=== PATIENT | female | born 1940 | race Caucasian/White ===

== ENCOUNTER → 2018-05-04 | Outpatient (CLI) | payer MEDICARE ==
--- NOTE | 2018-05-04 12:37 | XR ---
EXAMINATION TYPE: XR Hip Complete LT DATE OF EXAM: 05/04/2018 CLINICAL HISTORY: Left hip pain. TECHNIQUE: AP and frogleg views of the left hip are obtained. COMPARISON: None. FINDINGS: There is no acute fracture/dislocation evident in the left hip. There is advanced degenera tive change with superior marked joint space loss and aktw-ey-brek formation. Some reactive osteophyt e formation and subchondral cystic change is seen. There is loss of spherical shape in the femoral he ad. Left-sided pelvic phleboliths are seen. IMPRESSION: There is advanced DJD in the left hip.
--- NOTE | 2018-05-04 12:38 | XR ---
EXAMINATION TYPE: XR lumbosacral spine min 4V DATE OF EXAM: 05/04/2018 CLINICAL HISTORY: Left hip pain possible sciatica. TECHNIQUE: Frontal, lateral, and oblique images of the lumbar spine are obtained. COMPARISON: None FINDINGS: Demineralization is present. There are 5 lumbar type vertebral bodies identified. The lumb ar spine shows slight dextroconvex scoliotic curvature without evidence of acute fracture or dislocat ion. Vertebral body heights are within normal limits. Mild disc space narrowing upper lumbar levels i s present. There is multilevel facet arthropathy in the lower lumbar spine. The oblique images appea r within normal limits. Vascular calcification of overlying abdominal aorta is seen. IMPRESSION: As above.
== END | disposition home or self-care (01) ==
LOC: RADXRYALE 11:30
PROVIDERS: ATTEND Internal Medicine
DX: M48.061 Spinal stenosis, lumbar region without neurogenic claudication (principal); M46.96 Unspecified inflammatory spondylopathy, lumbar region; M41.9 Scoliosis, unspecified; M25.552 Pain in left hip
CPT/HCPCS: 72110; 73502

== ENCOUNTER → 2018-07-30 | Outpatient (CLI) | payer MEDICARE | END | disposition home or self-care (01) | LOC: LABPAT 09:03 | PROVIDERS: ATTEND Orthopaedic Surgery | DX: Z01.812 Encounter for preprocedural laboratory examination (principal) | CPT/HCPCS: 87070 ==

== ENCOUNTER → 2018-08-06 | Outpatient (CLI) | payer MEDICARE ==
[2018-08-06 16:13] LABS: HGB 15.1 gm/dL (11.4-16.0); MCH 28.3 pg (25.0-35.0); MCV 88.5 fL (80.0-100.0); Mean Platelet Volume 7.9; Platelet Count 232 k/uL (150-450); RBC 5.31 m/uL (3.80-5.40); RDW 14.2 % (11.5-15.5); WBC 5.9 k/uL (3.8-10.6)
[2018-08-06 16:21] LABS: Appearance,Urine Clear (Clear); Bacteria,Urine Rare /hpf; Bilirubin,Urine Negative (Negative); Blood,Urine Negative (Negative); Color,Urine Light Yellow; Glucose,Urine (UA) Negative (Negative); Ketones,Urine Negative (Negative); Leukocyte Esterase,Urine Moderate (Negative); Mucus,Urine Rare /hpf; Nitrite,Urine Negative (Negative); Protein,Urine Negative (Negative); RBC,Urine 1 /hpf (0-5); Squamous Epithelial Cell,Urine <1 /hpf (0-4); Urobilinogen,Urine <2.0 mg/dL (<2.0); WBC,Urine 7 /hpf (0-5)
[2018-08-06 16:24] LABS: Anion Gap 10 mmol/L; Blood Urea Nitrogen 17 mg/dL (7-17); Carbon Dioxide 25 mmol/L (22-30); Chloride 106 mmol/L (98-107); Potassium 4.4 mmol/L (3.5-5.1); Sodium 141 mmol/L (137-145)
[2018-08-06 16:27] LABS: Prothrombin Time 9.8 sec (9.0-12.0)
== END | disposition home or self-care (01) ==
LOC: LABPAT 14:57
PROVIDERS: ATTEND Orthopaedic Surgery
DX: Z01.812 Encounter for preprocedural laboratory examination (principal)
CPT/HCPCS: 80051; 81001; 82565; 84520; 85027; 85610; 85730

== ENCOUNTER 2018-08-10 05:33 | Inpatient (IN) | payer MEDICARE ==
[2018-08-03 11:38] VITALS: BMI 25.4
[~2018-08-10 05:33] MED LIST: ACETAMINOPHEN TAB 500 MG TAB PO ONE; MELOXICAM 7.5 MG TAB PO ONE; TRANEXAMIC ACID 1,000 MG in SODIUM CHLORIDE 0.9% 50 ML IVPB ONE; ceFAZolin IN SWFI 2 GM/20 ML SYRINGE IVP ONE
[2018-08-10] MEDS ORDERED: DEXAMETHASONE SOD PHOSPHATE 10 MG/ML 1 ML VIAL IV ONE (05:40)
[2018-08-10] MEDS ORDERED: ONDANSETRON 4 MG/2 ML VIAL IVP ONE (05:40)
[2018-08-10] MEDS ORDERED: HYDROmorphone 0.5 MG/0.5 ML SYRINGE IVP PRN (05:40)
[2018-08-10] MEDS ORDERED: ROPIVACAINE 246.25 MG, EPINEPHrine 0.5 MG, KETOROLAC 30 MG, cloNIDine HCL/PF 80 MCG, WA... MISCELLANE ONE ×5 (05:54)
[2018-08-10] MEDS: LACTATED RINGERS 1,000 ML IV SCH (06:45)
[2018-08-10] MEDS ORDERED: LIDOCAINE 1% 20 ML VIAL (10MG/ML) FOR IV START INTRADERMA ONE (06:45)
[2018-08-10] MEDS ORDERED: MIDAZOLAM 2 MG/2 ML VIAL ONE (07:23)
[2018-08-10] MEDS ORDERED: NALOXONE 0.4 MG/ML 1 ML VIAL IV PRN (07:23)
[2018-08-10] MEDS ORDERED: HEPARIN SODIUM,PORCINE 10,000 UNIT/ML 1 ML VIAL ONE (07:23)
[2018-08-10] MEDS ORDERED: SODIUM CHLORIDE 0.9% IRRIG 1,000 ML BTL IRRIGATION ONE (07:23)
[2018-08-10] MEDS ORDERED: ONDANSETRON 4 MG/2 ML VIAL IVP PRN (07:23)
[2018-08-10] MEDS ORDERED: MAGNESIUM HYDROXIDE 2,400 MG/10 ML CUP PO PRN (07:23)
[2018-08-10] MEDS ORDERED: SODIUM CHLORIDE 0.9% 100 ML BAG ONE (07:23)
[2018-08-10] MEDS ORDERED: fentaNYL (PF) 50 MCG/ML 2 ML AMP ONE (07:23)
[2018-08-10] MEDS ORDERED: TRANEXAMIC ACID 1,000 MG/10 ML VIAL ONE (07:23)
[2018-08-10] MEDS ORDERED: HYDROcodone/APAP 5-325MG 1 EACH TAB PO PRN (07:23)
[2018-08-10] MEDS ORDERED: HYDROmorphone 1 MG/ML 1 ML SYRINGE IVP PRN ×3 (07:23)
[2018-08-10] MEDS ORDERED: DIAZEPAM 5 MG TAB PO PRN ×2 (07:23)
[2018-08-10] MEDS ORDERED: ceFAZolin 3,000 MG in SODIUM CHLORIDE 0.9% IRRIGATIO 3,000 ML IRRIGATION ONE (08:08)
--- NOTE | 2018-08-10 08:58 | P.OP ---
Date of Procedure: 08/10/18 Preoperative Diagnosis: Severe osteoarthritis left hip Postoperative Diagnosis: Severe osteoarthritis left hip Procedure(s) Performed: Left total hip arthroplasty with a direct anterior approach Implants: Johnson and nephew Polarstem size 3 standard Johnson & Nephew R3, 3 hole acetabular shell, 48 mm Johnson & Nephew reflection 6.5 mm cancellus screw, 20 mm 2 Johnson & Nephew R3, XLPE 20 acetabular liner Johnson & Nephew Oxinium femoral head 32 m, +0 All components were press-fit. The articulation is Oxinium on polyethylene. Anesthesia: spinal Surgeon: Alek Tong Metal Numerical Control Programmer #1: Munira Crespo Estimated Blood Loss (ml): 150 (65 mL returned with Cell Saver) Pathology: other (Femoral head) Condition: stable Disposition: PACU Indications for Procedure: After failure of conservative treatment we discussed the surgical and nonsurgical treatment options at length. Patient wishes to proceed with a total hip arthroplasty with a direct anterior approach. Complications specific to this procedure were discussed at length, including but not limited to infection, leg length discrepancy, dislocation, and nerve injury. Patient is aware of all these complications and informed consent was obtained Operative Findings: The operative findings are consistent with severe osteoarthritis of the left hip Description of Procedure: Patient was seen and evaluated in the preoperative area, consent was reviewed, and the surgical site was marked with a skin marker. Patient was then brought to the operating room and given prophylactic antibiotics intravenously. 1 g of Tranexamic acid was also given. A spinal anesthetic was administered by the anesthesia department. The patient was then placed on the [place] table with the bony prominences well-padded. The hip area was then prepped and draped in usual sterile fashion. A universal timeout was then performed, which confirmed the patient's name, surgical site, ALLERGIES, and procedure being performed. Next the incision site was located at 1 cm distal and 1 cm lateral to the anterior superior iliac spine. The skin and subcutaneous tissues were sharply incised. Incision was carefully dissected down to the fascia overlying the tensor fascia juan muscle. This fascia was then incised in line with the incision. Next, using blunt finger dissection, the tensor fascia juan muscle was dissected off its investing fascia. The muscle was then carefully retracted laterally with a cobra retractor over the lateral neck of the femur. Next, the circumflex vessels were identified and cauterized using the AquaMantis device. The anterior hip capsule was then exposed. The capsule was then opened and an inverted T fashion. Cobra retractors were then placed intracapsularly. The proximal femur was then visualized. The femoral neck was then osteotomized appropriate level above the lesser trochanter. Small amount of traction was placed with the [place] table. A small wedge of bone was then removed from the remaining femoral head. Next, using a corkscrew femoral head was easily removed from the acetabulum. On gross visual inspection, the femoral head had complete loss of articular cartilage in multiple periarticular osteophytes. Attention was then turned to the acetabulum. the acetabulum was exposed and any remaining labrum was excised. Sequential reaming of the acetabulum was performed using fluoroscopic guidance. When the appropriate size was reached, a trial was then placed. The position and fit of the trial was checked with fluoroscopy. The trial was then removed. Then, using fluoroscopic guidance, the final implant was impacted at 20 of anteversion and 40 of abduction, and fully seated in the acetabulum. 2 screws were then placed in the acetabulum. Again fluoroscopy was used to check position of the screws. Next, the liner was then impacted, with a 20 elevated liner located in the anterior superior quadrant. Component locking was confirmed. Attention was then directed to the femur. With the aid of the [place] table, the femur was externally rotated to approximately 130, extended, and abducted under the opposite leg. A side hook was then placed under the proximal femur, and the side hook elevator was used to elevate the proximal femur. Retractors were then placed. A capsular release was performed, as well as a release of the conjoined tendon, which afforded excellent visualization of the proximal femur. Next, a box osteotome was used to lateralize the proximal femur. A hand stapler was then used to locate the femoral canal. Sequential broaching was then performed with appropriate size which afforded excellent fixation in the proximal femur. A trial was then placed with appropriate head and neck, and the hip was gently reduced with the aid of the [place] table. Fluoroscopy was then used to check position of the components, as well as to ensure equal leg lengths. The hip was then gently dislocated and the trials were then removed. Final implants were then impacted and the hip was again reduced. Final fluoroscopic x-rays confirmed that the components were in anatomic position, as well as equal leg lengths. The hip was also taken through range of motion, and found to be stable. The hip was then copiously irrigated with antibiotic solution with pulsatile lavage. The hip was then irrigated with Irrisept solution. The soft tissues were then injected with a ropivacaine solution, which consisted of 246.25 mg of ropivacaine, 0.5 mg of epinephrine, 30 mg of Toradol, 80 g of clonidine, and 48.45 mL of sterile water, for a total of 100 mL of fluid injected. A second dose of 1 g of Tranexamic acid was also given. the fascia was then closed with 2-0 strata fix suture. The subcutaneous tissue was closed with 3-0 Vicryl. The subcuticular tissue was closed with 3-0 strata fix suture. The skin was then closed with Dermabond glue and a sterile silver dressing. The patient was then transferred to the recovery room in stable condition. The educational assistant teacher NEO Son was required due to the complexity of surgery, and the need for skilled surgical lead for positioning, draping, exposure, retraction, and closure of the wound.
--- NOTE | 2018-08-10 09:31 | XR ---
Fluoroscopy History: Status post hip surgery, assess surgical alignment 38 sec fluoro
[2018-08-10] MEDS: SODIUM CHLORIDE 0.9% 1,000 ML IV SCH ×2 (11:09→20:09)
--- NOTE | 2018-08-10 13:17 | P.CONS ---
History of Present Illness - Reason for Consult Preoperative Complication management - History of Present Illness 78-year-old pleasant female underwent elective left hip arthroplasty successfully underwent surgery doesn't have a surgical drain denied any fever chills nausea vomiting patient pain is well controlled at this time patient denied any dysuria. Patient doesn't have a Sheriff catheter at this time. Patient denied any cough runny nose. Review of Systems REVIEW OF SYSTEMS: CONSTITUTIONAL: No fever, no malaise, no fatigue. HEENT: No recent visual problems or hearing problems. Denied any sore throat. CARDIOVASCULAR: No chest pain, orthopnea, PND, no palpitations, no syncope. PULMONARY: No shortness of breath, no cough, no hemoptysis. GASTROINTESTINAL: No diarrhea, no nausea, no vomiting, no abdominal pain. Normoactive bowel sounds. NEUROLOGICAL: No headaches, no weakness, no numbness. HEMATOLOGICAL: Denies any bleeding or petechiae. GENITOURINARY: Denies any burning micturition, frequency, or urgency. MUSCULOSKELETAL/RHEUMATOLOGICAL: Denies any joint pain, swelling, or any muscle pain. ENDOCRINE: Denies any polyuria or polydipsia. The rest of the 14-point review of systems is negative. Past Medical History Past Medical History: Cancer, Thyroid Disorder Additional Past Medical History / Comment(s): varicose veins, "weak bladder", hx uterine cancer, History of Any Multi-Drug Resistant Organisms: None Reported Past Surgical History: Breast Surgery, Hysterectomy, Joint Replacement Additional Past Surgical History / Comment(s): rt hip replacement, cyst removed from rt breast, Past Anesthesia/Blood Transfusion Reactions: No Reported Reaction Past Psychological History: No Psychological Hx Reported Smoking Status: Never smoker Past Alcohol Use History: None Reported Past Drug Use History: None Reported - Past Family History Father Family Medical History: Cancer Daughter(s) Family Medical History: Cancer Medications and Allergies Home Medications Medication Instructions Recorded Confirmed Type Acetaminophen [Tylenol Extra 500 mg PO DIRECTED PRN 08/03/18 08/10/18 History Strength] Calcium Carbonate/Vitamin D3 1 cap PO GARCIA 08/03/18 08/10/18 History [Calcium 600-Vit D3 500 Softgel] Cetirizine HCl [Zyrtec] 10 mg PO DAILY 08/03/18 08/10/18 History Levothyroxine Sodium [Synthroid] 50 mcg PO DAILY 08/03/18 08/10/18 History Montelukast Sodium [Singulair] 10 mg PO HS 08/03/18 08/10/18 History Naproxen 500 mg PO BID PRN 08/03/18 08/10/18 History Oxybutynin Chloride 5 mg PO BID 08/03/18 08/10/18 History Pravastatin Sodium [Pravachol] 40 mg PO DAILY@1600 08/03/18 08/10/18 History Allergies Allergy/AdvReac Type Severity Reaction Status Date / Time No Known Allergies Allergy Verified 08/10/18 09:44 Physical Exam Vitals: Vital Signs Temp Pulse Resp BP Pulse Ox 08/10/18 12:30 79 140/86 08/10/18 12:15 73 122/70 08/10/18 12:00 73 122/70 08/10/18 11:45 69 120/76 08/10/18 11:30 78 118/75 08/10/18 11:15 68 128/77 08/10/18 11:00 78 120/77 08/10/18 10:45 80 135/111 08/10/18 10:32 64 14 08/10/18 10:25 64 14 115/76 100 08/10/18 09:51 66 16 101/56 98 08/10/18 09:39 60 16 96/55 98 08/10/18 09:21 67 16 101/57 97 08/10/18 09:05 98.3 F 76 16 114/55 94 L 08/10/18 06:45 97.6 F 69 16 134/80 98 Intake and Output 08/09/18 08/10/18 08/10/18 22:59 06:59 14:59 Intake Total 100 601 Output Total 150 Balance 100 451 Intake: IV 100 601 Output: Estimated Blood Loss 150 Other: Weight 61.235 kg PHYSICAL EXAMINATION: GENERAL: The patient is alert and oriented x3, not in any acute distress. Well developed, well nourished. HEENT: Pupils are round and equally reacting to light. EOMI. No scleral icterus. No conjunctival pallor. Normocephalic, atraumatic. No pharyngeal erythema. No thyromegaly. CARDIOVASCULAR: S1 and S2 present. No murmurs, rubs, or gallops. PULMONARY: Chest is clear to auscultation, no wheezing or crackles. ABDOMEN: Soft, nontender, nondistended, normoactive bowel sounds. No palpable organomegaly. MUSCULOSKELETAL: Deferred to orthopedic surgery EXTREMITIES: No cyanosis, clubbing, or pedal edema. NEUROLOGICAL: Gross neurological examination did not reveal any focal deficits. SKIN: No rashes. Assessment and Plan Plan: -Left hip arthroplasty postoperative day 0: Pain management DVT prophylaxis per primary service -Hypothyroidism: Continue with levothyroxine -Hyperlipidemia continue with statin -Primary degenerative osteoarthritis multiple joints.
[2018-08-10] MEDS: PRAVASTATIN SODIUM 40 MG TAB PO SCH (15:34)
[2018-08-10] MEDS: ceFAZolin IN SWFI 2 GM/20 ML SYRINGE IVP SCH (15:34)
[2018-08-10] MEDS: HYDROcodone/APAP 5-325MG 1 EACH TAB PO PRN ×2 (15:34→21:08)
[2018-08-10] MEDS: ASPIRIN 325 MG TAB PO SCH (20:08)
[2018-08-10] MEDS: MONTELUKAST 10 MG TAB PO SCH (20:08)
[2018-08-10] MEDS: SENNOSIDES-DOCUSATE SODIUM 1 EACH TAB PO SCH (20:09)
[2018-08-10] MEDS: OXYBUTYNIN CHLORIDE 5 MG TAB PO SCH (20:09)
[2018-08-10] MEDS: hydrOXYzine PAMOATE 25 MG CAP PO PRN (21:09)
[2018-08-11] MEDS: ceFAZolin IN SWFI 2 GM/20 ML SYRINGE IVP SCH (00:32)
[2018-08-11] MEDS: LACTATED RINGERS 1,000 ML IV SCH (05:24)
[2018-08-11] MEDS: LEVOTHYROXINE 50 MCG TAB PO SCH (05:26)
[2018-08-11 07:53] LABS: Basophils % (A) 0 %; Eosinophils % (A) 0 %; HCT 36.9 % (34.0-46.0); Lymphocytes % (A) 12 %; MCH 28.4 pg (25.0-35.0); MCHC 31.9 g/dL (31.0-37.0); MCV 89.1 fL (80.0-100.0); Mean Platelet Volume 7.8; Monocytes # (A) 0.6 k/uL (0-1.0); Monocytes % (A) 8 %; Neutrophils # (A) 6.2 k/uL (1.3-7.7); Neutrophils % (A) 78 %; Platelet Count 192 k/uL (150-450); RBC 4.14 m/uL (3.80-5.40); RDW 14.1 % (11.5-15.5); WBC 7.9 k/uL (3.8-10.6)
[2018-08-11 07:58] LABS: HGB 11.8 gm/dL (11.4-16.0)
[2018-08-11] MEDS: OXYBUTYNIN CHLORIDE 5 MG TAB PO SCH ×2 (08:44→21:10)
[2018-08-11] MEDS: LORATADINE 10 MG TAB PO SCH (08:44)
[2018-08-11] MEDS: MELOXICAM 7.5 MG TAB PO SCH (08:44)
[2018-08-11] MEDS: ASPIRIN 325 MG TAB PO SCH ×2 (08:44→21:10)
[2018-08-11] MEDS: HYDROcodone/APAP 5-325MG 1 EACH TAB PO PRN ×3 (08:45→21:11)
--- NOTE | 2018-08-11 12:59 | P.PN ---
Subjective Progress Note Date: 08/11/18 This is a 78-year-old female who is status post left total hip arthroplasty. This is postoperative day #1. Patient states that her pain is under control and she has been up and walking with physical therapy. Patient denies any fever/ chills, numbness, weakness, tingling, abdominal pain, shortness of breath or chest pain. Objective - Vital Signs Vital signs: Vital Signs Temp 97.2 F L 08/11/18 07:00 Pulse 85 08/11/18 07:00 Resp 12 08/11/18 07:00 BP 179/79 08/11/18 07:00 Pulse Ox 94 L 08/11/18 07:00 Intake & Output 08/10/18 08/11/18 08/11/18 18:59 06:59 18:59 Intake Total 601 1630 Output Total 650 Balance -49 1630 Weight 61.235 kg Intake: IV 601 Intake, IV Titration 550 Amount Sodium Chloride 0.9% 1, 550 000 ml @ 65 mls/hr IV . [id number] [facility] Rx#:[id number] Oral 1080 Output: Stool 500 Estimated Blood Loss 150 Other: Voiding Method Toilet # Voids 3 2 # Bowel Movements 0 - Exam Vital signs are stable. Patient is in no acute distress and is alert and oriented 3. Calf is soft and nontender to palpation. Dressing is clean, dry, and intact. Patient has full foot and ankle motion without pain or difficulty. Neurovascular status and circulatory status are intact. - Labs CBC & Chem 7: 08/11/18 06:40 Assessment and Plan (1) Primary osteoarthritis of left hip Current Visit: Yes Status: Acute Code(s): M16.12 - UNILATERAL PRIMARY OSTEOARTHRITIS, LEFT HIP SNOMED Code(s): 282786347 (2) Status post total hip replacement, left Current Visit: Yes Status: Acute Code(s): Z96.642 - PRESENCE OF LEFT ARTIFICIAL HIP JOINT SNOMED Code(s): 206901959111 Plan: Continue routine postop care. Continue antocoagulation. Weightbearing as tolerated with a walker. Leave dressing in place for 10 days. Possible discharge to rehab on .
--- NOTE | 2018-08-11 13:26 | P.PN ---
Subjective No overnight events moved her bowel. Objective - Vital Signs Vital signs: Vital Signs Temp 97.2 F L 08/11/18 07:00 Pulse 85 08/11/18 07:00 Resp 12 08/11/18 07:00 BP 179/79 08/11/18 07:00 Pulse Ox 94 L 08/11/18 07:00 Intake & Output 08/10/18 08/11/18 08/11/18 18:59 06:59 18:59 Intake Total 601 1630 Output Total 650 Balance -49 1630 Weight 61.235 kg Intake: IV 601 Intake, IV Titration 550 Amount Sodium Chloride 0.9% 1, 550 000 ml @ 65 mls/hr IV . [id number] Rx#:[id number] Oral 1080 Output: Stool 500 Estimated Blood Loss 150 Other: Voiding Method Toilet # Voids 3 2 # Bowel Movements 0 - Exam PHYSICAL EXAMINATION: GENERAL: The patient is alert and oriented x3, not in any acute distress. Well developed, well nourished. HEENT: Pupils are round and equally reacting to light. EOMI. No scleral icterus. No conjunctival pallor. Normocephalic, atraumatic. No pharyngeal erythema. No thyromegaly. CARDIOVASCULAR: S1 and S2 present. No murmurs, rubs, or gallops. PULMONARY: Chest is clear to auscultation, no wheezing or crackles. ABDOMEN: Soft, nontender, nondistended, normoactive bowel sounds. No palpable organomegaly. MUSCULOSKELETAL: Deferred to orthopedic surgery EXTREMITIES: No cyanosis, clubbing, or pedal edema. NEUROLOGICAL: Gross neurological examination did not reveal any focal deficits. SKIN: No rashes. - Labs CBC & Chem 7: 08/11/18 06:40 Assessment and Plan Plan: -Left hip arthroplasty postoperative day 1: Pain management DVT prophylaxis per primary service -Hypothyroidism: Continue with levothyroxine -Hyperlipidemia continue with statin -Primary degenerative osteoarthritis multiple joints.
[2018-08-11] MEDS: PRAVASTATIN SODIUM 40 MG TAB PO SCH (18:04)
[2018-08-11] MEDS: SENNOSIDES-DOCUSATE SODIUM 1 EACH TAB PO SCH (21:10)
[2018-08-11] MEDS: MONTELUKAST 10 MG TAB PO SCH (21:10)
[2018-08-11] MEDS: hydrOXYzine PAMOATE 25 MG CAP PO PRN (21:10)
[2018-08-12] MEDS: LACTATED RINGERS 1,000 ML IV SCH (03:23)
[2018-08-12] MEDS: HYDROcodone/APAP 5-325MG 1 EACH TAB PO PRN ×3 (04:29→20:24)
[2018-08-12] MEDS: hydrOXYzine PAMOATE 25 MG CAP PO PRN (04:30)
[2018-08-12] MEDS: LEVOTHYROXINE 50 MCG TAB PO SCH (06:06)
--- NOTE | 2018-08-12 08:14 | P.PN ---
Subjective Progress Note Date: 08/12/18 This is a 78-year-old female who is status post left total hip arthroplasty. This is postoperative day #2. Patient states that she has been up and walking and her pain is under control. Patient denies any fever/chills, numbness, weakness, tingling, abdominal pain, shortness of breath or chest pain. Objective - Vital Signs Vital signs: Vital Signs Temp 97.8 F 08/12/18 07:15 Pulse 80 08/12/18 07:15 Resp 16 08/12/18 07:15 BP 119/75 08/12/18 07:15 Pulse Ox 98 08/12/18 07:15 Intake & Output 08/11/18 08/12/18 08/12/18 18:59 06:59 18:59 Other: # Voids 3 1 - Exam Vital signs are stable. Patient is in no acute distress and is alert and oriented 3. Calf is soft and nontender to palpation. Dressing is clean, dry, and intact. Patient has full foot and ankle motion without pain or difficulty. Neurovascular status and circulatory status are intact. - Labs CBC & Chem 7: 08/11/18 06:40 Assessment and Plan (1) Primary osteoarthritis of left hip Current Visit: Yes Status: Acute Code(s): M16.12 - UNILATERAL PRIMARY OSTEOARTHRITIS, LEFT HIP SNOMED Code(s): 391703218 (2) Status post total hip replacement, left Current Visit: Yes Status: Acute Code(s): Z96.642 - PRESENCE OF LEFT ARTIFICIAL HIP JOINT SNOMED Code(s): 623509520780 Plan: Continue routine postop care. Continue antocoagulation. Weightbearing as tolerated with a walker. Leave dressing in place for 10 days. Likely discharge to rehab tomorrow.
[2018-08-12] MEDS: LORATADINE 10 MG TAB PO SCH (08:55)
[2018-08-12] MEDS: MELOXICAM 7.5 MG TAB PO SCH (08:55)
[2018-08-12] MEDS: OXYBUTYNIN CHLORIDE 5 MG TAB PO SCH ×2 (08:55→20:24)
[2018-08-12] MEDS: ASPIRIN 325 MG TAB PO SCH ×2 (08:55→20:24)
[2018-08-12] MEDS: PRAVASTATIN SODIUM 40 MG TAB PO SCH (18:22)
[2018-08-12] MEDS: MONTELUKAST 10 MG TAB PO SCH (20:24)
[2018-08-12] MEDS: SENNOSIDES-DOCUSATE SODIUM 1 EACH TAB PO SCH (20:24)
[2018-08-13] MEDS: HYDROcodone/APAP 5-325MG 1 EACH TAB PO PRN ×3 (05:12→19:57)
[2018-08-13] MEDS: LEVOTHYROXINE 50 MCG TAB PO SCH (05:12)
[2018-08-13 07:09] LABS: Basophils % (A) 1 %; Eosinophils # (A) 0.1 k/uL (0-0.7); Eosinophils % (A) 2 %; HCT 34.5 % (34.0-46.0); HGB 11.2 gm/dL (11.4-16.0); Lymphocytes # (A) 0.8 k/uL (1.0-4.8); Lymphocytes % (A) 13 %; MCH 29.1 pg (25.0-35.0); MCHC 32.5 g/dL (31.0-37.0); MCV 89.6 fL (80.0-100.0); Mean Platelet Volume 7.7; Monocytes # (A) 0.4 k/uL (0-1.0); Monocytes % (A) 7 %; Neutrophils # (A) 4.6 k/uL (1.3-7.7); Neutrophils % (A) 76 %; Platelet Count 185 k/uL (150-450); RBC 3.85 m/uL (3.80-5.40); RDW 14.2 % (11.5-15.5)
--- NOTE | 2018-08-13 07:59 | P.DS ---
Providers Date of admission: 08/10/18 05:33 Expected date of discharge: 08/13/18 Attending physician: Alek Tong Consults: 08/10/18 07:23 Consult Physician Routine Consulting Provider: Renny Concepcion Consult Reason/Comments: medical management Do you want consulting provider notified?: Yes Primary care physician: Maia Chapman - Discharge Diagnosis(es) (1) Primary osteoarthritis of left hip Current Visit: Yes Status: Acute (2) Status post total hip replacement, left Current Visit: Yes Status: Acute Hospital Course: This is a 78-year-old female with known history of degenerative arthritis of the left hip. The patient presents for evaluation. After discussion and consideration patient elects to proceed with total hip arthroplasty. The patient is seen preoperatively by Dr. Tong and medically cleared for surgery by their primary care physician. Patient is admitted to [facility] on 08/10/2018 for total hip arthroplasty. The procedures performed without complication or sequelae. The patient is doing well postoperatively. Labs and vital signs are stable on day of discharge. On day of discharge patient's hip incision is healing well. There is minimal erythema. There is no drainage noted at this time. There is minimal soft tissue swelling to the hip and thigh. Patient has full foot and ankle motion without difficulty or pain. Neurovascular status to the left lower extremity is intact. Patient is discharged to rehab in good condition. Please see med rec for accurate list of home medications. Plan - Discharge Summary Discharge Rx Participant: Yes New Discharge Prescriptions: New Aspirin 325 mg PO BID #60 tab HYDROcodone/APAP 5-325MG [[place] 5-325] 1 - 2 tab PO Q4-6H PRN #84 tab PRN Reason: Pain Sennosides [Senokot] 1 tab PO BID #60 tablet No Action Naproxen 500 mg PO BID PRN PRN Reason: Pain Pravastatin Sodium [Pravachol] 40 mg PO DAILY@1600 Oxybutynin Chloride 5 mg PO BID Levothyroxine Sodium [Synthroid] 50 mcg PO DAILY Cetirizine HCl [Zyrtec] 10 mg PO DAILY Montelukast Sodium [Singulair] 10 mg PO HS Acetaminophen [Tylenol Extra Strength] 500 mg PO DIRECTED PRN PRN Reason: Pain Calcium Carbonate/Vitamin D3 [Calcium 600-Vit D3 500 Softgel] 1 cap PO GARCIA Discharge Medication List Acetaminophen [Tylenol Extra Strength] 500 mg PO DIRECTED PRN 08/03/18 [ History] Calcium Carbonate/Vitamin D3 [Calcium 600-Vit D3 500 Softgel] 1 cap PO GARCIA [History] Cetirizine HCl [Zyrtec] 10 mg PO DAILY 08/03/18 [History] Levothyroxine Sodium [Synthroid] 50 mcg PO DAILY 08/03/18 [History] Montelukast Sodium [Singulair] 10 mg PO HS 08/03/18 [History] Naproxen 500 mg PO BID PRN 08/03/18 [History] Oxybutynin Chloride 5 mg PO BID 08/03/18 [History] Pravastatin Sodium [Pravachol] 40 mg PO DAILY@1600 08/03/18 [History] Aspirin 325 mg PO BID #60 tab 08/12/18 [Rx] HYDROcodone/APAP 5-325MG [[place] 5-325] 1 - 2 tab PO Q4-6H PRN #84 tab 08/12/18 [ Rx] Sennosides [Senokot] 1 tab PO BID #60 tablet 08/12/18 [Rx] Follow up Appointment(s)/Referral(s): Alek Tong DO [Doctor of Osteopathic Medicine] - 08/24/18 10:30 am Activity/Diet/Wound Care/Special Instructions: Weightbearing as tolerated with walker Leave dressing intact. Dressing may be removed by home care nurse in 10 days. May shower with dressing on. Follow-up with [facility] in 2 weeks, please call with any questions or concerns [phone] Discharge Disposition: TRANSFER TO SNF/ECF
[2018-08-13] MEDS: LACTATED RINGERS 1,000 ML IV SCH (08:02)
[2018-08-13] MEDS: ASPIRIN 325 MG TAB PO SCH ×2 (08:07→19:56)
[2018-08-13] MEDS: LORATADINE 10 MG TAB PO SCH (08:07)
[2018-08-13] MEDS: MELOXICAM 7.5 MG TAB PO SCH (08:07)
[2018-08-13] MEDS: OXYBUTYNIN CHLORIDE 5 MG TAB PO SCH ×2 (08:07→19:56)
[2018-08-13] MEDS: PRAVASTATIN SODIUM 40 MG TAB PO SCH (16:19)
--- NOTE | 2018-08-13 16:42 | P.PN ---
Subjective No overnight events. Case management is evaluating for her disposition. Objective - Vital Signs Vital signs: Vital Signs Temp 97.4 F L 08/13/18 15:00 Pulse 85 08/13/18 15:00 Resp 16 08/13/18 15:00 BP 142/84 08/13/18 15:00 Pulse Ox 95 08/13/18 15:00 Intake & Output 08/12/18 08/13/18 08/13/18 18:59 06:59 18:59 Intake Total 706 180 Balance 706 180 Intake: Oral 706 180 Other: Voiding Method Toilet # Voids 2 2 1 - Exam PHYSICAL EXAMINATION: GENERAL: The patient is alert and oriented x3, not in any acute distress. Well developed, well nourished. HEENT: Pupils are round and equally reacting to light. EOMI. No scleral icterus. No conjunctival pallor. Normocephalic, atraumatic. No pharyngeal erythema. No thyromegaly. CARDIOVASCULAR: S1 and S2 present. No murmurs, rubs, or gallops. PULMONARY: Chest is clear to auscultation, no wheezing or crackles. ABDOMEN: Soft, nontender, nondistended, normoactive bowel sounds. No palpable organomegaly. MUSCULOSKELETAL: Deferred to orthopedic surgery EXTREMITIES: No cyanosis, clubbing, or pedal edema. NEUROLOGICAL: Gross neurological examination did not reveal any focal deficits. SKIN: No rashes. - Labs CBC & Chem 7: 08/13/18 06:16 Labs: Abnormal Lab Results - Last 24 Hours (Table) 08/13/18 Range/Units 06:16 Hgb 11.2 L (11.4-16.0) gm/dL Lymphocytes # 0.8 L (1.0-4.8) k/uL Assessment and Plan Plan: -Left hip arthroplasty postoperative day 1: Pain management DVT prophylaxis per primary service -Hypothyroidism: Continue with levothyroxine -Hyperlipidemia continue with statin -Primary degenerative osteoarthritis multiple joints.
[2018-08-13] MEDS: MONTELUKAST 10 MG TAB PO SCH (19:56)
[2018-08-13] MEDS: SENNOSIDES-DOCUSATE SODIUM 1 EACH TAB PO SCH (19:56)
[2018-08-14 00:04] VITALS: RESP 16
[2018-08-14] MEDS: HYDROcodone/APAP 5-325MG 1 EACH TAB PO PRN ×2 (05:36→12:00)
[2018-08-14] MEDS: LEVOTHYROXINE 50 MCG TAB PO SCH (05:36)
[2018-08-14] MEDS: LACTATED RINGERS 1,000 ML IV SCH (05:45)
[2018-08-14 07:29] VITALS: BP 113/74; PULSE 67; TEMP 97.1
[2018-08-14] MEDS: OXYBUTYNIN CHLORIDE 5 MG TAB PO SCH (08:41)
[2018-08-14] MEDS: LORATADINE 10 MG TAB PO SCH (08:41)
[2018-08-14] MEDS: MELOXICAM 7.5 MG TAB PO SCH (08:41)
[2018-08-14] MEDS: ASPIRIN 325 MG TAB PO SCH (08:41)
[2018-08-14] MEDS: hydrOXYzine PAMOATE 25 MG CAP PO PRN (12:00)
--- NOTE | 2018-08-14 13:51 | P.PN ---
Subjective No overnight events. Case management is evaluating for her disposition. 07/14/2018 Patient is being discharged to subacute rehab Objective - Vital Signs Vital signs: Vital Signs Temp 97.1 F L 08/14/18 07:28 Pulse 67 08/14/18 07:28 Resp 16 08/14/18 07:28 BP 113/74 08/14/18 07:28 Pulse Ox 98 08/14/18 07:28 Intake & Output 08/13/18 08/14/18 08/14/18 18:59 06:59 18:59 Intake Total 360 800 662 Balance 360 800 662 Intake: Oral 360 800 662 Other: Voiding Method Toilet # Voids 1 1 - Exam PHYSICAL EXAMINATION: GENERAL: The patient is alert and oriented x3, not in any acute distress. Well developed, well nourished. HEENT: Pupils are round and equally reacting to light. EOMI. No scleral icterus. No conjunctival pallor. Normocephalic, atraumatic. No pharyngeal erythema. No thyromegaly. CARDIOVASCULAR: S1 and S2 present. No murmurs, rubs, or gallops. PULMONARY: Chest is clear to auscultation, no wheezing or crackles. ABDOMEN: Soft, nontender, nondistended, normoactive bowel sounds. No palpable organomegaly. MUSCULOSKELETAL: Deferred to orthopedic surgery EXTREMITIES: No cyanosis, clubbing, or pedal edema. NEUROLOGICAL: Gross neurological examination did not reveal any focal deficits. SKIN: No rashes. - Labs CBC & Chem 7: 08/13/18 06:16 Assessment and Plan Plan: -Left hip arthroplasty postoperative day 1: Pain management DVT prophylaxis per primary service -Hypothyroidism: Continue with levothyroxine -Hyperlipidemia continue with statin -Primary degenerative osteoarthritis multiple joints.
[2018-08-14] MEDS: PRAVASTATIN SODIUM 40 MG TAB PO SCH (14:51)
== END 2018-08-14 15:15 | disposition home health service (06) | DRG 470 ==
LOC: 2ORMAIN 05:33 → 3SUR 09:16
PROVIDERS: ADMIT Orthopaedic Surgery; ATTEND Orthopaedic Surgery
PROC: 30233N0 Transfusion of Autologous Red Blood Cells into Peripheral Vein, Percutaneous Approach (ICD-10-PCS; 2018-08-10)
PROC: 0SRB06A Replacement of Left Hip Joint with Oxidized Zirconium on Polyethylene Synthetic Substitute, Uncemented, Open Approach (ICD-10-PCS; principal; 2018-08-10 07:30)
DX: M16.12 Unilateral primary osteoarthritis, left hip (principal); E03.9 Hypothyroidism, unspecified; I83.90 Asymptomatic varicose veins of unspecified lower extremity; R09.82 Postnasal drip; Z79.890 Hormone replacement therapy; Z79.899 Other long term (current) drug therapy; Z96.641 Presence of right artificial hip joint; Z90.710 Acquired absence of both cervix and uterus; Z85.42 Personal history of malignant neoplasm of other parts of uterus; Z80.9 Family history of malignant neoplasm, unspecified
CPT/HCPCS: 36415; 73501; 85025; 86850; 86891; 86900; 86901; 88300

== ENCOUNTER → 2018-11-02 | Outpatient (CLI) | payer MEDICARE ==
--- NOTE | 2018-11-03 11:14 | MM ---
Reason for exam: screening (asymptomatic). Last mammogram was performed 1 year ago. History: Patient is postmenopausal and has history of endometrial cancer at age 65. Physical Findings: A clinical breast exam by your physician is recommended on an annual basis and results should be correlated with mammographic findings. MG 3D Screening Mammo W/Cad Bilateral CC and MLO view(s) were taken. Prior study comparison: October 30, 2017, bilateral MG screening mammo w CAD. September 05, 2016, bilateral MG 3d screening mammo w/cad. The breast tissue is heterogeneously dense. This may lower the sensitivity of mammography. There are benign appearing round calcifications bilaterally. There is no discrete abnormality. ASSESSMENT: Benign, BI-RAD 2 RECOMMENDATION: Routine screening mammogram of both breasts in 1 year.
== END ==
LOC: RADMAMWWP 12:20
PROVIDERS: ATTEND Internal Medicine
DX: Z12.31 Encounter for screening mammogram for malignant neoplasm of breast (principal)
CPT/HCPCS: 77063; 77067

== ENCOUNTER → 2020-07-11 | Outpatient (CLI) | payer MEDICARE ==
--- NOTE | 2020-07-11 12:23 | MM ---
Reason for exam: screening (asymptomatic). Last mammogram was performed 1 year and 8 months ago. History: Patient is postmenopausal and has history of endometrial cancer at age 65. Physical Findings: A clinical breast exam by your physician is recommended on an annual basis and results should be correlated with mammographic findings. MG 3D Screening Mammo W/Cad Bilateral CC and MLO view(s) were taken. Prior study comparison: November 02, 2018, bilateral MG 3d screening mammo w/cad. October 30, 2017, bilateral MG screening mammo w CAD. There are scattered fibroglandular densities. There are benign appearing round calcifications bilaterally. There is no discrete abnormality. ASSESSMENT: Benign, BI-RAD 2 RECOMMENDATION: Routine screening mammogram of both breasts in 1 year.
== END | disposition home or self-care (01) ==
LOC: RADMAMWWP 11:05
PROVIDERS: ATTEND Internal Medicine
DX: Z12.31 Encounter for screening mammogram for malignant neoplasm of breast (principal)
CPT/HCPCS: 77063; 77067

== ENCOUNTER → 2021-08-15 | Outpatient (CLI) | payer MEDICARE ==
--- NOTE | 2021-08-16 13:55 | MM ---
Reason for exam: screening (asymptomatic). Last mammogram was performed 1 year and 1 month ago. History: Patient is postmenopausal and has history of endometrial cancer at age 65. Physical Findings: A clinical breast exam by your physician is recommended on an annual basis and results should be correlated with mammographic findings. MG 3D Screening Mammo W/Cad Bilateral CC and MLO view(s) were taken. Prior study comparison: July 11, 2020, bilateral MG 3d screening mammo w/cad. November 02, 2018, bilateral MG 3d screening mammo w/cad. October 30, 2017, bilateral MG screening mammo w CAD. There are scattered fibroglandular densities. No significant changes when compared with prior studies. ASSESSMENT: Benign, BI-RAD 2 RECOMMENDATION: Routine screening mammogram of both breasts in 1 year.
--- NOTE | 2021-08-16 15:57 | BD ---
EXAMINATION TYPE: Axial Bone Density DATE OF EXAM: 08/15/2021 COMPARISON: NONE CLINICAL HISTORY: Postmenopausal female, N 95.8 Height: 60 Weight: 135.2 FRAX RISK QUESTIONS: Alcohol (3 or more units per day): no Family History (Parent hip fracture): no Glucocorticoids (More than 3mos): no (Ex: prednisone, prednisolone, methylprednisolone, dexamethasone, and hydrocortisone). History of Fracture in Adulthood: no Secondary Osteoporosis: 1. Type 1 Diabetes: no 2. Hyperthyroidism: no 3. Menopause before 45: no 4. Malnutrition: no 5. Chronic liver disease: no Rheumatoid Arthritis: no Current Tobacco Use: no RISK FACTORS HISTORY OF: Surgery to Spine/Hip(right/left)/Wrist (right/left): bilateral hip replacements When: Family History of Osteoporosis: no Active: yes Diet low in dairy products/other sources of calcium: no Postmenopausal woman: yes Lost more than 2 inches in height since high school: no MEDICATIONS: med list scanned into pacs Thyroid Medications: thyroid Additional History: EXAM MEASUREMENTS: Bone mineral densitometry was performed using the [employer] [facility]. Bone mineral density as measured about the Lumbar spine is: ----- L1-L4(G/cm2):1.010 T Score Values are as follows: ----- L2: -1.3 ----- L3: -1.0 ----- L4: -2.2 ----- L1-L4: -1.4 Bone mineral density : baseline Bone mineral density about the L Wrist (g/cm2): 0.555 T Score values are as follows: -----Dist. R+U: -1.1 -----Prox. R+U: -2.0 -----Radius total: -2.0 Bone mineral density : baseline IMPRESSION: Osteopenia (T Score between -2.5 and -1). There is slightly increased risk of fracture and the patient may be considered for treatment. Re-Screen 2-5 years. NOTE: T-SCORE=SD OF THE YOUNG ADULT MEAN.
== END | disposition home or self-care (01) ==
LOC: RADBDWWP 13:59
PROVIDERS: ATTEND Internal Medicine
DX: Z12.31 Encounter for screening mammogram for malignant neoplasm of breast (principal); Z85.42 Personal history of malignant neoplasm of other parts of uterus; M85.89 Other specified disorders of bone density and structure, multiple sites; Z78.0 Asymptomatic menopausal state
CPT/HCPCS: 77063; 77067; 77080